=== PATIENT | male | born 2000 | race Caucasian/White ===

== ENCOUNTER 2023-08-13 11:29 | Emergency (ER) | payer OTHER, SELFPAY ==
[2023-08-13 11:31] VITALS: BP 151/81
--- NOTE | 2023-08-13 12:09 | ED.GENMED ---
History of Present Illness
General
Chief Complaint: Foreign Body Ingestion
Source: patient
Exam Limitations: none
Time Seen by Provider: 08/13/23 11:46
Travel History
Have you had any contact with someone who has COVID-19?: No
Do you have any symptoms of coronavirus? Fever > 100 degrees, chills, cough, shortness of breath, sore throat, loss of taste or smell, muscle aches, or headache?: No
History of Present Illness
History of Present Illness:
22-year-old male kissed his girlfriend's ear noted the earring was missing and is concerned he may have swallowed the front of the earring. No clear-cut foreign body sensation. No physical complaints
Past History
Past History
ED Past Medical History: Asthma
ED Past Surgical History: Other (myringotomy tubes)
Patient has exhibited threatening behavior?: No
Social History
Tobacco: Non-smoker
Alcohol: None
Drug: None
Personal: Single
Living: with family
Employment: Employed
Family History
Family History: Adopted
Review of Systems
Review of Systems
All Other Systems: Not applicable
Phy Exam
Physical Exam
Physical Exam:
GENERAL: Alert and oriented in no apparent distress
EYE: Orbits normal.
NECK: Supple
ENT: Pharynx without erythema. No foreign body. No drooling or stridor
CARDIAC: Regular rate and rhythm without any obvious murmurs.
LUNGS: Clear breath sounds,normal
ABDOMEN: Soft, without focal tenderness or distention
NEUROLOGICAL: Alert and oriented , grossly non-focal
SKIN: Warm and dry
PSYCH: Normal and appropriate interaction.
Course
Orders/Labs/Results
Orders:
Orders
08/13/23 11:55
Chest Single View Frontal CR [CR Chest Single View] Urgent
Comment:
Reason For Exam: earring ingestion
Soft Tissue, Neck [CR Soft Tissue Neck ] Urgent
Comment:
Reason For Exam: earring ingestion
08/13/23 11:56
CR Abdomen - 1 View Urgent
Comment:
Reason For Exam: earring ingestuion
Vital Signs
Initial and Last Documented VS:
Initial Vital Signs
Temp Pulse Resp BP Pulse Ox
97.6 F 77 18 151/81 99
08/13/23 11:31 08/13/23 11:31 08/13/23 11:31 08/13/23 11:31 08/13/23 11:31
Last Documented Vital Signs
Temp Pulse Resp BP Pulse Ox
97.6 F 77 18 151/81 99
08/13/23 11:31 08/13/23 11:31 08/13/23 11:31 08/13/23 11:31 08/13/23 11:31
*Radiology
Radiology exam reviewed: radiology read reviewed (Negative x-ray)
*Pulse Oximetry
Patient hypoxic: no
*Critical Care Note
Total Time (30-74mins, 75-104mins- exclusive of procedures): Not Applicable
ED Attending Note
-
Portions of this chart may have been created with voice recognition software.� Occasional wrong word or��sound alike� substitutions may have occurred due to the inherent limitations of voice recognition software.
Discharge Plan
Departure
Patient Disposition: Home (Routine Discharge)
Date of Disposition: 08/13/23
Time of Disposition: 12:48
Patient with high blood pressure during this ER visit?: Yes
Discharge Problem:
Evaluation for ingested foreign body
Instructions: Swallowed Objects, Adult (DC), BLOOD PRESSURE
Prescriptions:
No Action
prednisolone sodium phosphate [Orapred] 15 MG/5 ML solution
15 mg PO BID Qty: 40 0RF
Referrals:
UNKNOWN - PT DOES,NOT KNOW [Family Provider] -
Activity Restrictions/Additional Instructions:
We did not find the earring. It very likely would have shown up on x-ray. However I did give you the instructions for ingested foreign body in case you develop any symptoms or issues
Follow-up with your physician in 2 to 3 days
Interventions
Interventions:
*ED COVID-19 Vaccine History Last Done: 08/13/23 11:39
Discharge Date and Time
Print Language: GREEK
== END 2023-08-13 13:24 | disposition home or self-care (01) ==
LOC: EMR 11:29
PROVIDERS: EMERGENCY PHYSICIAN Emergency Medicine
DX: Z03.89 Encounter for observation for other suspected diseases and conditions ruled out (principal); R03.0 Elevated blood-pressure reading, without diagnosis of hypertension; J45.909 Unspecified asthma, uncomplicated
CPT/HCPCS: 99283; 70360; 71045; 74018

== ENCOUNTER → 2024-01-11 15:21 | Outpatient (REF) | payer OTHER, SELFPAY | LOC: HWRAD 15:21 | PROVIDERS: ATTENDING PHYSICIAN Physician Assistant | DX: R79.89 Other specified abnormal findings of blood chemistry (principal); E66.01 Morbid (severe) obesity due to excess calories | CPT/HCPCS: 76700 ==